=== PATIENT | female | born 1995 | race Caucasian/White ===

== ENCOUNTER 2022-04-07 15:44 | Emergency (ER) | payer OTHER ==
[~2022-04-07] VITALS: Ht 157.5 cm; Wt 65.8 kg
[2022-04-07 16:09] VITALS: BP 136/71
[2022-04-07] MEDS ORDERED: BACITRACIN OINT 500 UNITS/GM PKT TP ONE ×2 (16:55→18:31)
--- NOTE | 2022-04-07 17:04 | NUR ---
NON ADHERENT X 1 APPLIED TO L POINTER DIGIT. FROG FINGER SPLINT APPLIED. + CMS
[2022-04-07] MEDS ORDERED: CEPH-588 PO (17:25)
[2022-04-07] MEDS ORDERED: IBUP-2213 PO (17:25)
[2022-04-07] MEDS ORDERED: BACI1PAC6 TP (17:25)
--- NOTE | 2022-04-07 18:01 | NUR ---
Patient discharged with v/s stable. Written and verbal after care instructions given and explained. Patient verbalized understanding. Ambulatory with steady gait. All questions addressed prior to discharge. Advised to follow up with PMD.
== END 2022-04-07 18:01 | disposition home or self-care (01) ==
LOC: MED 15:44
DX: S61.211A Laceration without foreign body of left index finger without damage to nail, initial encounter (principal); X58.XXXA Exposure to other specified factors, initial encounter; Y93.89 Activity, other specified; Y92.89 Other specified places as the place of occurrence of the external cause; Y99.8 Other external cause status
CPT/HCPCS: 99283